=== PATIENT | male | born 1960 | race Caucasian/White ===

== ENCOUNTER → 2020-06-29 15:04 | Outpatient (CLI) | payer BC, SELFPAY ==
--- NOTE | ~2020-06-29 | XR_ITS ---
XR chest 2V DATE: 06/29/2020 15:15 INDICATION: Cough for 8 months. TECHNIQUE: PA and lateral views COMPARISON: None FINDINGS: Normal heart size. No hilar or mediastinal enlargement. No pulmonary infiltrate or consolid ation, pleural effusion or pulmonary vascular congestion or pneumothorax. Mild dextroscoliosis and mild degenerative change of the thoracic spine. IMPRESSION: No active cardiopulmonary disease Reviewed, dictated and finalized at location B. [facility]
== END ==
PROVIDERS: PCP Internal Medicine; Visit Provider Internal Medicine
DX: R05 Cough (principal)
CPT/HCPCS: 71046

== ENCOUNTER → 2020-07-11 00:37 | Outpatient (CLI) | payer BC, SELFPAY ==
[2020-07-11 19:08] LABS: SARS-CoV-2 RNA PCR Negative
== END ==
PROVIDERS: PCP Internal Medicine; Visit Provider Internal Medicine Gastroenterology
DX: Z01.812 Encounter for preprocedural laboratory examination (principal); Z20.822 Contact with and (suspected) exposure to COVID-19
CPT/HCPCS: C9803; U0003; U0005

== ENCOUNTER 2020-07-14 00:58 | Day surgery (SDC) | payer BC, SELFPAY ==
[2020-06-12 13:40] VITALS: BMI 31.8
[2020-06-29 12:49] VITALS: BMI 32.8
--- NOTE | 2020-07-13 13:31 | WPDANESEPPF ---
Anes - Initial Pre Proc Eval Procedure: Operation Date: 07/14/20 08:30 Proposed Procedures p Colonoscopy - Brock Stoddard MD Date/Time: 07/13/20 13:31 Surgeon: Brock Stoddard MD Pre Op Diagnosis: neoplasm screening Patient Data Age: 59 Gender: M Height: 1.73 m Weight: 97.8 kg Allergies Allergy/AdvReac Type Severity Reaction Status Date / Time No Known Allergies Allergy Unverified 07/14/20 06:58 Home Medications Medication Instructions Recorded Confirmed Type fluticasone propionate 50 2 spray INTRANASAL DAILY #9.9 ml 06/05/20 07/14/20 Rx mcg/actuation nasal spray,suspension omeprazole 20 mg capsule,delayed 20 mg PO DAILY #30 cap 06/05/20 07/14/20 Rx release paroxetine HCl 10 mg tablet 10 mg PO DAILY 06/05/20 07/14/20 History sodium,potassium,mag sulfates 17.5 See Rx Instructions PO .COMPLEX 07/11/20 07/14/20 Rx gram-3.13 gram-1.6 gram oral soln #354 ml Patient hx anesthesia problems: none Family hx anesthesia problems: none PMFSH Past Medical History Medical History (Updated 07/13/20 @ 13:31 by Amor Kendrick MD) Anxiety Chronic GERD Encounter for screening for lipid disorder Obesity Surgical History Surgical History H/O hernia repair History of tonsillectomy Family History Family History Mother , Age 57 Head Trauma Epilepsy Father , Age 78 COPD Arrhythmia COPD (chronic obstructive pulmonary disease) Grandparent , Age 78 [place] No problems noted. Grandparent , Age 94 Old Age No problems noted. Grandparent , Age 89 Cancer No problems noted. Sibling , Age 58 ALS ALS (amyotrophic lateral sclerosis) Social History Social History Smoking status: Never smoker Alcohol intake: current Drinks per week: 2 Alcohol use details: 1-2 PER MONTH Substance use: never Substance use type: does not use Living arrangements: with family Gender identity (if verbalized by the patient): Male Spiritual care concerns: No Anes - Eval Final PreProcedure Day of Procedure 07/13/20 13:31 Patient weight: obese Heart: regular rate and rhythm Lungs: clear to auscultation and normal air movement Airway: Mallampati scale class II Neurological: alert and oriented Last oral intake: >/= 8 hours ASA classification: II Emergent: no Anesthetic plan: proceed Anesthesia type and monitoring: general GIVS Informed Consent: The patient's anesthetic plan and its attendant risks and benefits were discussed with the patient/family/POA. Questions were solicited and answers provided to the satisfaction of the patient/family/POA.
[2020-07-14 07:08] VITALS: BP 158/84; PULSE 71; RESP 16; TEMP 36.3; O2SAT 97
[2020-07-14] MEDS: LACTATED RINGERS 1,000 ML 150 ML IV CONT (07:17)
--- NOTE | 2020-07-14 08:35 | PM.HPGS ---
History of Present Illness History of Present Illness Consent: Risks, benefits, and alternatives have been discussed and questions answered. Patient agrees to proceed with procedure. Chief complaint: neoplasm screening Narrative: Bob Burnett is a 59 year old male here for screening colonoscopy, last colonoscopy 2010 Review of Systems Constitutional: Constitutional: Denies headache(s) and Denies weakness Eyes: Eyes: Denies blurry vision ENT: Reports Normal hearing present, Denies headache(s) and Denies neck pain Cardiovascular: Cardiovascular: Denies chest pain and Denies dyspnea Respiratory: Respiratory: Denies dyspnea Gastrointestinal: Gastrointestinal: Reports no additional gastrointestinal complaints Genitourinary: Genitourinary: Denies dysuria Musculoskeletal: Musculoskeletal: Denies neck pain Integumentary/Breasts: Skin/Breast: Denies dry skin Neurologic: Reports Normal hearing present, Denies headache(s) and Denies weakness Psychiatric: Psychiatric: Denies anxiety Endocrine: Endocrine: Denies change in body appearance Hematologic/Lymphatic: Hematologic/Lymphatic: Denies easy bleeding Allergic/Immunologic: Allergic/Immunologic: Denies urticaria PMFSH Past Medical History Medical History (Updated 07/14/20 @ 08:36 by Brock Stoddard MD) Anxiety Chronic GERD Colon cancer screening Encounter for screening for lipid disorder Obesity Surgical History Surgical History H/O hernia repair History of tonsillectomy Family History Family History Mother , Age 57 Head Trauma Epilepsy Father , Age 78 COPD Arrhythmia COPD (chronic obstructive pulmonary disease) Grandparent , Age 78 [place] No problems noted. Grandparent , Age 94 Old Age No problems noted. Grandparent , Age 89 Cancer No problems noted. Sibling , Age 58 ALS ALS (amyotrophic lateral sclerosis) Social History Social History Smoking status: Never smoker Alcohol intake: current Drinks per week: 2 Alcohol use details: 1-2 PER MONTH Substance use: never Substance use type: does not use Living arrangements: with family Gender identity (if verbalized by the patient): Male Spiritual care concerns: No Meds Home Medications and Allergies Home Medications Medication Instructions Recorded Confirmed Type fluticasone propionate 50 2 spray INTRANASAL DAILY #9.9 ml 06/05/20 07/14/20 Rx mcg/actuation nasal spray,suspension omeprazole 20 mg capsule,delayed 20 mg PO DAILY #30 cap 06/05/20 07/14/20 Rx release paroxetine HCl 10 mg tablet 10 mg PO DAILY 06/05/20 07/14/20 History sodium,potassium,mag sulfates 17.5 See Rx Instructions PO .COMPLEX 07/11/20 07/14/20 Rx gram-3.13 gram-1.6 gram oral soln #354 ml Allergies Allergy/AdvReac Type Severity Reaction Status Date / Time No Known Allergies Allergy Unverified 07/14/20 06:58 Vital Signs Vital Signs - 24 hr 07/14/20 07:08 Temperature 97.3 F L Pulse Rate 71 Respiratory Rate 16 Blood Pressure 158/84 H Pulse Oximetry 97 Exam Const: General: comfortable and no acute distress HENMT: General nose exam: Normal nares present Eyes: General: appearance normal, both eyes and all related structures Neck: Neck: no JVD Resp: Auscultation: clear to auscultation bilaterally Cardio: Rate: regular rate Rhythm: regular rhythm GI: Inspection: non-distended GI Palp: Yes Soft to palpation Skin: General skin exam: normal color Neuro: General: gait normal Speech: normal speech Extrem: General: normal to inspection Psych: Mental Status: mental status grossly normal Assessment and Plan Assessment and plan (1) Colon ca
[2020-07-14 08:56] VITALS: BP 124/76; PULSE 52; RESP 18; O2SAT 99
[2020-07-14 09:06] VITALS: BP 122/73; PULSE 48; RESP 16; O2SAT 99
--- NOTE | 2020-07-14 09:08 | SUR.PHASEII ---
PT STATES HEARTRATE RUNS IN THE 40'S NORMALLY. STATES NO CONCERNS
[2020-07-14 09:16] VITALS: BP 134/82; PULSE 44; RESP 18; O2SAT 100
== END 2020-07-14 09:28 | disposition home or self-care (01) ==
PROVIDERS: PCP Internal Medicine; Visit Provider Internal Medicine Gastroenterology
PROC: 0DJD8ZZ Inspection of Lower Intestinal Tract, Via Natural or Artificial Opening Endoscopic (ICD-10-PCS; CPT 45378; principal; 2020-07-14 08:30)
DX: Z12.11 Encounter for screening for malignant neoplasm of colon (principal); K64.8 Other hemorrhoids; F41.9 Anxiety disorder, unspecified; K21.9 Gastro-esophageal reflux disease without esophagitis; E66.9 Obesity, unspecified; Z68.32 Body mass index [BMI] 32.0-32.9, adult
CPT/HCPCS: 45378; J2704; J7120